=== PATIENT | female | born 2005 | race Asian ===

== ENCOUNTER 2023-11-24 06:27 | Outpatient (REF) | payer BC, SELFPAY ==
--- NOTE | ~2023-11-24 | US_ITS ---
EXAMINATION: US PELVIS CLINICAL INFORMATION: IUD check. 18-year-old, LMP 10/26/2023 COMPARISON: None available. TECHNIQUE: Ultrasound of the pelvis is performed using both transabdominal and transvaginal transducers along with Doppler. Transvaginal imaging is performed due to inadequate visualization transabdominally. FINDINGS: Uterus: The uterus is anteverted and measures 7.0 x 3.6 x 4.4 cm. The double wall endometrial thickness is 2 mm. Intrauterine device appears centered within the endometrial canal in appropriate position. The uterus is smooth in contour and has normal myometrial echogenicity. No visible fibroid. Adnexa: Both ovaries are visualized. There is normal color flow to the adnexa. There is no ovarian torsion. There is no pelvic ascites or fluid collection. Right ovary measures 1.6 x 1.8 x 2.5 cm. Left ovary measures 4.5 x 3.0 x 2.4 cm. US/US pelvic and transvaginal IMPRESSION: Intrauterine device appears centered within the endometrial canal in appropriate position. Electronically signed by: Evita Theodore MD 11/24/2023 08:56 PM EDT
== END 2023-11-24 06:28 | disposition home or self-care (01) ==
LOC: HO.UMASIMG 06:27
PROVIDERS: Visit Provider Family Medicine
DX: Z30.431 Encounter for routine checking of intrauterine contraceptive device (principal); N83.292 Other ovarian cyst, left side
CPT/HCPCS: 76830; 76856